=== PATIENT | male | born 1990 | race Caucasian/White ===

== ENCOUNTER 2020-01-31 17:31 | Emergency (ER) | payer BC, MEDICAID ==
[~2020-01-31] VITALS: Ht 182.9 cm; Wt 148.7 kg
--- NOTE | 2020-01-31 18:13 | NUR ---
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
[2020-01-31 18:43] LABS: BASOPHILS # (AUTO) 0.04 x10^3/uL (0-0.1); BASOPHILS % (AUTO) 1 % (0-1); EOSINOPHILS # (AUTO) 0.13 x10^3/uL (0-0.4); EOSINOPHILS % (AUTO) 2 % (1-7); LYMPHOCYTES # (AUTO) 2.15 x10^3/uL (1-3.4); LYMPHOCYTES % (AUTO) 29 % (22-44); MD NO; MEAN CORPUSCULAR HEMOGLOBIN 30.6 pg (27.5-34.5); MEAN CORPUSCULAR HGB CONC 34.7 g/dL (33.2-36.2); MEAN CORPUSCULAR VOLUME 88.2 fL (81-97); MEAN PLATELET VOLUME 7.8 fL (7.4-10.4); MONOCYTES % (AUTO) 8 % (2-9); NEUTROPHILS # (AUTO) 4.52 x10^3/uL (1.8-6.8); NEUTROPHILS % (AUTO) 61 % (42-75); PLATELET COUNT 321 x10^3/uL (130-400); RED BLOOD COUNT 5.15 x10^6/uL (4.38-5.82); RED CELL DISTRIBUTION WIDTH 13.3 % (9.4-14.8)
--- NOTE | 2020-01-31 18:52 | NUR ---
REPORT GIVEN TO JOSE ABRAHAM.
[2020-01-31 18:54] LABS: ALANINE AMINOTRANSFERASE 112 U/L (12-78); ALBUMIN 4.2 g/dL (3.4-5.0); ANION GAP 6 mmol/L (5-15); CALCIUM 9.2 mg/dL (8.5-10.1); CHLORIDE 109 mmol/L (98-107); CREATININE 1.23 mg/dL (0.7-1.3)
[2020-01-31 18:56] LABS: ALKALINE PHOSPHATASE 71 U/L (45-117); BILIRUBIN,TOTAL 0.6 mg/dL (0.2-1.0); TOTAL PROTEIN 8.3 g/dL (6.4-8.2)
--- NOTE | 2020-01-31 19:07 | NUR ---
ASSUMED CARE OF PT, PT RESTING ON GURNEY, SPEAKING IN FULL SENTENCES, NO NEURO DEFICITS NOTED, VSS. CALL LIGHT PLACED WITHIN REACH.
[2020-01-31 19:10] VITALS: BP 124/64
[2020-01-31] MEDS ORDERED: ARIP30TA4 PO (19:14)
[2020-01-31] MEDS ORDERED: HYDR-826 PO (19:14)
[2020-01-31] MEDS ORDERED: TRAZ-175 PO (19:14)
[2020-01-31] MEDS ORDERED: ESCI5TAB7 PO (19:14)
== END 2020-01-31 19:36 | disposition home or self-care (01) ==
LOC: ED 18:50
DX: G56.02 Carpal tunnel syndrome, left upper limb (principal); R19.7 Diarrhea, unspecified; F17.210 Nicotine dependence, cigarettes, uncomplicated
CPT/HCPCS: 36415; 80053; 85025; 90471; 93005; 99284; 99406

== ENCOUNTER → 2021-02-13 | Outpatient (CLI) | payer MEDICAID ==
[~2021-02-13] MED LIST: ARIP30TA4 PO; ESCI5TAB7 PO; HYDR-826 PO; OMNIPAQUE 350 MG/ML, 75ML BOTTLE ONE; TRAZ-175 PO
== END | disposition home or self-care (01) ==
LOC: CFH 12:57
DX: K11.8 Other diseases of salivary glands (principal); R68.84 Jaw pain
CPT/HCPCS: 70487; Q9967